=== PATIENT | male | born 1990 | race Caucasian/White ===

== ENCOUNTER → 2024-06-22 14:03 | Outpatient (BNVA) | payer OTHER, SELFPAY | PROVIDERS: Family Provider Nurse Practitioner; Visit Provider Specialist | DX: M75.02 Adhesive capsulitis of left shoulder (principal); G89.29 Other chronic pain | CPT/HCPCS: 73030; 99204 ==

== ENCOUNTER 2024-07-01 14:19 | Outpatient (CLI) | payer OTHER, SELFPAY ==
--- NOTE | 2024-07-01 14:30 | MR_ITS ---
WS: [id number] MRI LEFT SHOULDER NONCONTRAST TECHNIQUE: Sagittal T2, coronal T1, T2 and proton density imaging. Axial gradient PDE imaging. CLINICAL INFORMATION: left shoulder pain COMPARISON: None. FINDINGS: Mild downsloping acromion with a small amount of fluid and soft tissue edema at the AC joint. Slight subacromial spurring. Slight impingement on the distal supraspinatus. Supraspinatus is intact. Infraspinatus is intact. Normal teres minor. Calcifications involving the posterior supraspinatus and anterior infraspinatus insertions. Distal subscapularis tendon appears intact. Biceps tendon intact within the bicipital groove. Intra-articular biceps tendon appears intact and normal. Normal bone marrow signal in the humeral head and glenoid. Rotator cuff appears grossly normal. Biceps labral anchor appears intact. MR/MR shoulder LT wo con* [id number] IMPRESSION: 1. 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 Slight subacromial spurring with impingement on the distal supraspinatus. Trac e subacromial fluid. 2. Rotator cuff is intact. Calcifications involving the humeral head rotator c uff insertion as seen on the prior radiograph compatible with calcific tendinop athy. 3. Normal biceps tendon in the bicipital groove. 4. Intra-articular biceps tendon appears intact. 5. No other acute findings.
== END 2024-07-01 14:20 | disposition home or self-care (01) ==
PROVIDERS: Family Provider Nurse Practitioner; PCP Nurse Practitioner; Visit Provider Specialist
DX: M25.512 Pain in left shoulder (principal); M19.012 Primary osteoarthritis, left shoulder; R93.6 Abnormal findings on diagnostic imaging of limbs; M75.32 Calcific tendinitis of left shoulder
CPT/HCPCS: 73221

== ENCOUNTER 2024-09-02 07:17 | Outpatient (CLI) | payer OTHER, SELFPAY ==
--- NOTE | 2024-09-02 07:20 | MR_ITS ---
WS: [id number] MRI CERVICAL SPINE NONCONTRAST HISTORY: CERVICAL RADICULOPATHY COMPARISON: None available. Technique: Multiplanar, multisequence noncontrast imaging of the cervical spine. Very mild straightening of the cervical lordosis. No marrow edema or acute fractures. Very mild disc desiccation at C5-6. Signal within the cervical cord is normal. Visualized posterior fossa is unremarkable. Craniocervical junction, C1 and C2 relationship, odontoid process and soft tissues are normal. C2-C3: Normal. C3-C4: Small bilateral foraminal osteophytes with minimal foraminal narrowing. C4-C5: Mild annular disc bulging and osteophytic ridging. No stenosis. C5-C6: Mild annular disc bulging with a shallow LEFT foraminal osteophyte. No stenosis. C6-C7: Mild annular disc bulge. Moderate LEFT foraminal disc osteophyte complex narrowing the LEFT foramen and impinging the nerve root. C7-T1: Normal. Paraspinal soft tissue are normal. MR/MR cervical spin wo con* [id number] IMPRESSION: 1. No high-grade central or foraminal stenosis. 2. Moderate LEFT foraminal disc osteophyte complex at C6-7 impinging upon the nerve roots and causing LEFT foraminal stenosis. Correlate for C7 symptomatolog y. 3. Very small foraminal osteophytes at C3-4 with minimal narrowing.
== END 2024-09-02 07:18 | disposition home or self-care (01) ==
PROVIDERS: PCP Nurse Practitioner; Visit Provider Family Medicine
DX: M54.12 Radiculopathy, cervical region (principal); M25.78 Osteophyte, vertebrae; M48.02 Spinal stenosis, cervical region; M50.321 Other cervical disc degeneration at C4-C5 level; M50.322 Other cervical disc degeneration at C5-C6 level; M50.323 Other cervical disc degeneration at C6-C7 level
CPT/HCPCS: 72141